=== PATIENT | female | born 1980 | race Two or more races ===

== ENCOUNTER 2017-12-08 18:08 | Emergency (ER) | payer OTHER ==
[~2017-12-08] VITALS: Ht 157.5 cm; Wt 63.5 kg
[~2017-12-08 18:08] MED LIST: KETO10TA2 PO
== END 2017-12-08 21:32 | disposition home or self-care (01) ==
LOC: ER 18:08
DX: B34.9 Viral infection, unspecified (principal)

== ENCOUNTER 2019-10-21 16:24 | Emergency (ER) | payer OTHER ==
[~2019-10-21] VITALS: Ht 160 cm; Wt 65.3 kg
[2019-10-21] MEDS ORDERED: TUSNEL LIQUID178 ML PO (19:24)
[2019-10-21] MEDS ORDERED: OSEL75CA PO (19:24)
[2019-10-21] MEDS ORDERED: DOLOGEN CAPLET1 EACH PO (19:24)
[2019-10-21] MEDS ORDERED: ZITHROMAX500 MG PO (19:24)
== END 2019-10-21 20:06 | disposition home or self-care (01) ==
LOC: ER 16:24
DX: B34.8 Other viral infections of unspecified site (principal); J11.1 Influenza due to unidentified influenza virus with other respiratory manifestations; B96.0 Mycoplasma pneumoniae [M. pneumoniae] as the cause of diseases classified elsewhere

== ENCOUNTER 2020-02-05 17:43 | Emergency (ER) | payer OTHER ==
[~2020-02-05] VITALS: Ht 160 cm; Wt 68.5 kg
[~2020-02-05 17:43] MED LIST changes: +DOLOGEN CAPLET1 EACH PO; +OSEL75CA PO; +TUSNEL LIQUID178 ML PO; +ZITHROMAX500 MG PO
[2020-02-05] MEDS ORDERED: ADVIL (18:30)
== END 2020-02-05 22:40 | disposition home or self-care (01) ==
LOC: ER 17:43
DX: M54.5 Low back pain (principal); M25.551 Pain in right hip

== ENCOUNTER → 2021-04-21 | Emergency (ER) | payer OTHER ==
[~2021-04-21] VITALS: Ht 160 cm; Wt 69.9 kg
[~2021-04-21] MED LIST changes: +ADVIL
== END | disposition home or self-care (01) ==
LOC: ER
DX: B34.9 Viral infection, unspecified (principal); M54.5 Low back pain; Z03.818 Encounter for observation for suspected exposure to other biological agents ruled out

== ENCOUNTER 2021-07-28 12:38 | Emergency (ER) | payer OTHER ==
[~2021-07-28] VITALS: Ht 160 cm; Wt 70.8 kg
[2021-07-28] MEDS ORDERED: CYCLOBENZAPRINE10 MG PO (15:42)
[2021-07-28] MEDS ORDERED: DICLOFENAC POTA50 MG PO (15:42)
== END 2021-07-28 15:59 ==
LOC: ER 12:38
DX: S33.5XXA Sprain of ligaments of lumbar spine, initial encounter (principal); X58.XXXA Exposure to other specified factors, initial encounter; Y92.89 Other specified places as the place of occurrence of the external cause

== ENCOUNTER 2021-11-15 09:12 | Outpatient (CLI) | payer OTHER ==
[~2021-11-15 09:12] MED LIST changes: +CYCLOBENZAPRINE10 MG PO; +DICLOFENAC POTA50 MG PO
[2021-11-15] MEDS ORDERED: RELAFEN DS1000 MG PO (11:39)
== END 2021-11-15 09:15 | disposition home or self-care (01) ==
LOC: RAD 09:12
DX: M54.9 Dorsalgia, unspecified (principal); M54.50 Low back pain, unspecified

== ENCOUNTER 2021-11-15 10:58 | Emergency (ER) | payer OTHER ==
[~2021-11-15] VITALS: Ht 160 cm; Wt 69.4 kg
[2021-11-15] MEDS ORDERED: RELAFEN DS1000 MG PO (11:39)
== END 2021-11-15 12:45 | disposition home or self-care (01) ==
LOC: ER 10:58
DX: M54.9 Dorsalgia, unspecified (principal)

== ENCOUNTER 2022-01-28 17:25 | Emergency (ER) | payer OTHER ==
[~2022-01-28] VITALS: Ht 160 cm; Wt 70.8 kg
[~2022-01-28 17:25] MED LIST changes: +RELAFEN DS1000 MG PO
[2022-01-28] MEDS ORDERED: TYLENOL ARTHRI650 MG (17:36)
== END 2022-01-28 20:24 | disposition home or self-care (01) ==
LOC: ER 17:25
DX: U07.1 COVID-19 (principal); Z88.8 Allergy status to other drugs, medicaments and biological substances

== ENCOUNTER 2022-08-22 11:33 | Emergency (ER) | payer OTHER ==
[~2022-08-22] VITALS: Ht 160 cm; Wt 68.0 kg
[~2022-08-22 11:33] MED LIST changes: +TYLENOL ARTHRI650 MG
[2022-08-22] MEDS ORDERED: ZITHROMAX500 MG PO (16:45)
[2022-08-22] MEDS ORDERED: CLARITIN-D 121 EACH PO (16:45)
[2022-08-22] MEDS ORDERED: TUSSIN DM SYRU118 ML PO (16:45)
== END 2022-08-22 17:17 | disposition home or self-care (01) ==
LOC: ER 11:33
DX: B34.9 Viral infection, unspecified (principal); Z20.822 Contact with and (suspected) exposure to COVID-19; Z88.8 Allergy status to other drugs, medicaments and biological substances

== ENCOUNTER 2022-09-23 18:46 | Emergency (ER) | payer OTHER ==
[~2022-09-23] VITALS: Ht 160 cm; Wt 71.7 kg
[~2022-09-23 18:46] MED LIST changes: +CLARITIN-D 121 EACH PO; +TUSSIN DM SYRU118 ML PO
[2022-09-23] MEDS ORDERED: IPRAT-ALBUT 0.5-3 ML IH (21:57)
[2022-09-23] MEDS ORDERED: TUSNEL LIQUID178 ML PO (21:57)
[2022-09-23] MEDS ORDERED: ZITHROMAX500 MG PO (21:57)
== END 2022-09-23 22:24 | disposition home or self-care (01) ==
LOC: ER 18:46
DX: R06.02 Shortness of breath (principal); Z20.822 Contact with and (suspected) exposure to COVID-19

== ENCOUNTER 2022-12-30 13:04 | Emergency (ER) | payer OTHER ==
[~2022-12-30] VITALS: Ht 160 cm; Wt 73.0 kg
[~2022-12-30 13:04] MED LIST changes: +IPRAT-ALBUT 0.5-3 ML IH
[2022-12-30] MEDS ORDERED: CIPRO500 MG PO (17:35)
[2022-12-30] MEDS ORDERED: PEPCID AC20 MG PO (17:35)
== END 2022-12-30 17:46 | disposition home or self-care (01) ==
LOC: ER 13:04
DX: K52.9 Noninfective gastroenteritis and colitis, unspecified (principal); Z88.8 Allergy status to other drugs, medicaments and biological substances; Z87.09 Personal history of other diseases of the respiratory system

== ENCOUNTER 2023-01-18 09:26 | Emergency (ER) | payer OTHER ==
[~2023-01-18] VITALS: Ht 152.4 cm; Wt 70.3 kg
[~2023-01-18 09:26] MED LIST changes: +CIPRO500 MG PO; +PEPCID AC20 MG PO
== END 2023-01-18 13:35 | disposition home or self-care (01) ==
LOC: ER 09:26
DX: J02.9 Acute pharyngitis, unspecified (principal); R53.81 Other malaise; Z20.822 Contact with and (suspected) exposure to COVID-19; Z88.1 Allergy status to other antibiotic agents

== ENCOUNTER 2023-05-16 14:33 | Emergency (ER) | payer OTHER ==
[~2023-05-16] VITALS: Ht 160 cm; Wt 72.1 kg
[2023-05-16] MEDS ORDERED: NAPROXEN500 MG PO (21:25)
== END 2023-05-16 21:39 | disposition home or self-care (01) ==
LOC: ER 14:33
DX: S93.402A Sprain of unspecified ligament of left ankle, initial encounter (principal); S80.02XA Contusion of left knee, initial encounter; S80.01XA Contusion of right knee, initial encounter; S50.01XA Contusion of right elbow, initial encounter; W18.30XA Fall on same level, unspecified, initial encounter; Y93.89 Activity, other specified; Y92.488 Other paved roadways as the place of occurrence of the external cause; Y99.9 Unspecified external cause status; Z88.8 Allergy status to other drugs, medicaments and biological substances

== ENCOUNTER 2023-07-07 09:05 | Outpatient (CLI) | payer OTHER ==
[~2023-07-07 09:05] MED LIST changes: +NAPROXEN500 MG PO
== END 2023-07-07 09:22 | disposition home or self-care (01) ==
LOC: RAD 09:05
DX: M54.2 Cervicalgia (principal); M54.50 Low back pain, unspecified; M25.572 Pain in left ankle and joints of left foot; Z88.1 Allergy status to other antibiotic agents

== ENCOUNTER 2024-03-05 11:46 | Emergency (ER) | payer OTHER ==
[~2024-03-05] VITALS: Ht 160 cm; Wt 72.6 kg
[2024-03-05] MEDS ORDERED: RECTICARE30 GM MISCELL (14:00)
== END 2024-03-05 14:38 | disposition home or self-care (01) ==
LOC: ER 11:47
DX: K62.89 Other specified diseases of anus and rectum (principal); Z88.8 Allergy status to other drugs, medicaments and biological substances

== ENCOUNTER 2024-03-06 13:31 | Emergency (ER) | payer OTHER ==
[~2024-03-06] VITALS: Ht 160 cm; Wt 70.3 kg
[~2024-03-06 13:31] MED LIST changes: +RECTICARE30 GM MISCELL
[2024-03-06] MEDS ORDERED: CLINDAMYCIN PHOSPHATE 150 MG/ML (600mg) IM STA (16:23)
[2024-03-06] MEDS ORDERED: KETOROLAC TROMETHAMINE 60 MG VIAL IM STA (16:23)
== END 2024-03-06 16:34 | disposition home or self-care (01) ==
LOC: ER 13:31
DX: K62.89 Other specified diseases of anus and rectum (principal); K64.9 Unspecified hemorrhoids; Z88.8 Allergy status to other drugs, medicaments and biological substances